=== PATIENT | female | born 1965 | race African-American/Black ===

== ENCOUNTER 2018-03-31 04:33 | Emergency (ER) | payer SELFPAY ==
[2018-03-31 04:42] VITALS: TEMP 97.6
--- NOTE | 2018-03-31 04:53 | C.PDOC ---
History Of Present Illness 52 y/o female presents to the Ed complaining of chest pain that began tonight. The patient states the pain radiated to the back and she occasionally has SOB. The patient denies any nausea or dyspnea. Time Seen by Provider: 03/31/18 04:42 Chief Complaint (Nursing): Chest Pain History Per: Patient History/Exam Limitations: no limitations Onset/Duration Of Symptoms: Hrs Current Symptoms Are (Timing): Still Present Quality: "Pain" Associated Symptoms: denies: Nausea, Dyspnea Recent travel outside of the [place]: No Past Medical History Reviewed: Historical Data, Nursing Documentation, Vital Signs Vital Signs: Last Vital Signs Temp 97.6 F 03/31/18 04:38 Pulse 82 03/31/18 04:38 Resp 25 H 03/31/18 04:38 BP 146/80 03/31/18 04:38 Pulse Ox 100 03/31/18 04:38 - Medical History PMH: HTN, Hypercholesterolemia Surgical History: Family History: States: Unknown Family Hx - Social History Hx Alcohol Use: No Hx Substance Use: No - Immunization History Hx Tetanus Toxoid Vaccination: No Hx Influenza Vaccination: No Hx Pneumococcal Vaccination: No Review Of Systems Except As Marked, All Systems Reviewed And Found Negative. Constitutional: Negative for: Fever Cardiovascular: Positive for: Chest Pain Respiratory: Positive for: Shortness of Breath Musculoskeletal: Positive for: Back Pain Physical Exam - Physical Exam Appears: Non-toxic, No Acute Distress Skin: Normal Color, Warm, Dry Head: Atraumatic, Normacephalic Eye(s): bilateral: PERRL, EOMI Ear(s): Bilateral: Normal Oral Mucosa: Moist Neck: Supple Chest: Tenderness (pain reproducible with palpations) Cardiovascular: Rhythm Regular, No Murmur Respiratory: Normal Breath Sounds, No Rales, No Rhonchi, No Wheezing Gastrointestinal/Abdominal: Soft, No Tenderness, No Distention Extremity: Normal ROM Extremity: Bilateral: Normal Color And Temperature, Normal ROM Neurological/Psych: Oriented x3, Normal Speech ED Course And Treatment - Laboratory Results Result Diagrams: 03/31/18 05:00 03/31/18 05:00 ECG: Interpreted By Me, Viewed By Me ECG Rhythm: Sinus Rhythm ECG Interpretation: Normal, No Acute Changes Interpretation Of ECG: NSR, no acute changes, normal tracings Rate From EC O2 Sat by Pulse Oximetry: 100 (RA) Pulse Ox Interpretation: Normal - Radiology CXR: Interpreted by Me CXR Interpretation: Yes: No Acute Disease. No: Infiltrates, COPD, Fracture, Cardiomegaly (normal chest film) Medical Decision Making Medical Decision Making: Impression: 52 y/o female with chest pain radiating to back and occasional SOB Plan: -EKG -CMP -Troponin I -CBC -D-DImer -PTT -PT -Chest X-Ray -Toradol 30mg IV 0532- on reeval patient is resting comfortable with improvement of symptoms. Patient is ready and stable for d/c Disposition Counseled Patient/Family Regarding: Diagnosis - Disposition Referrals: Vern Zaragoza MD [Staff Provider] - Disposition: HOME/ ROUTINE Disposition Time: 05:35 Condition: IMPROVED Prescriptions: RX: Naproxen 375 mg PO Q6 #14 tablet Instructions: Costochondritis Forms: [facility] ([place]) - POA Present On Arrival: None - Clinical Impression Clinical Impression: Chest wall pain - PA / [employer] / Resident Statement MD/DO has reviewed & agrees with the documentation as recorded. - Scribe Statement The provider has reviewed the documentation as recorded by the Scribe (Tabitha Garner) Provider Attestation: All medical record entries made by the Scribe were at my direction and personally dictated by me. I have reviewed the chart and agree that the record accurately reflects my personal performance of the history, physical exam, medical decision making, and the department course for this patient. I have also personally directed, reviewed, and agree with the discharge instructions and disposition.
[2018-03-31 05:03] LABS: BASO # 0.1 K/uL (0.0-0.2); BASO % 1.1 % (0.0-2.0); EOS # 0.1 K/uL (0.0-0.7); EOS % 1.1 % (0.0-4.0); HEMOGLOBIN 11.6 g/dL (11.0-16.0); LYMPH # 2.6 K/uL (1.0-4.3); LYMPH % 39.2 % (20.0-40.0); MEAN CELL VOLUME 78.1 fL (81.0-99.0); MEAN CORPUSCULAR HEMOGLOBIN 27.3 pg (27.0-31.0); MEAN CORPUSCULAR HGB CONC 34.9 g/dL (33.0-37.0); MEAN PLATELET VOLUME 9.1 fL (7.2-11.7); MONO # 0.4 K/uL (0.0-0.8); MONO % 6.6 % (0.0-10.0); NEUT # 3.4 K/uL (1.8-7.0); NRBC % 0.1 % (0.0-2.0); RBC 4.24 Mil/uL (3.80-5.20); RED CELL DISTRIBUTION WIDTH 12.8 % (11.5-14.5); WHITE BLOOD COUNT 6.6 K/uL (4.8-10.8)
[2018-03-31 05:10] LABS: PARTIAL THROMBOPLASTIN TIME 30 SECONDS (21-34)
[2018-03-31 05:13] LABS: ALB/GLOB RATIO 1.5 (1.0-2.1); ALBUMIN 4.2 g/dL (3.5-5.0); ALT/SGPT 27 U/L (9-52); AST/SGOT 23 U/L (14-36); BLOOD UREA NITROGEN 14 mg/dL (7-17); CALCIUM 9.4 mg/dl (8.6-10.4); GFR NON-AFRICAN AMERICAN > 60
[2018-03-31 05:25] LABS: D DIMER < 200 ng/mlDDU (0-243)
[2018-03-31 05:48] VITALS: BP 133/74; PULSE 80; RESP 14
[2018-03-31 05:50] VITALS: O2SAT 100
--- NOTE | 2018-03-31 11:57 | RAD ---
HISTORY: chest pain COMPARISON: None available TECHNIQUE: Chest PA and lateral FINDINGS: LUNGS: Hyperinflation may be seen in the setting of COPD. Biapical pleural thickening. Increased lucencies especially within the bilateral upper lung sandoval compatible with underlying emphysema. Mild subsegmental bibasilar atelectasis. No focal consolidation identified. Please note that chest x-ray has limited sensitivity for the detection of pulmonary masses. PLEURA: No significant pleural effusion identified. No definite pneumothorax . CARDIOVASCULAR: Heart size appears within normal limits. OSSEOUS STRUCTURES: No acute osseous abnormality identified. VISUALIZED UPPER ABDOMEN: Unremarkable. OTHER FINDINGS: None. IMPRESSION: COPD/emphysema. Biapical pleural thickening. Mild subsegmental bibasilar atelectasis.
--- NOTE | 2018-03-31 20:40 | CARD ---
APPROVED REPORT Date of service: 03/31/2018 EKG Measurement Heart [id number] <Conclusion> Normal sinus rhythm Normal ECG
== END 2018-03-31 05:48 | disposition home or self-care (01) ==
LOC: C.ER 04:33
DX: R07.89 Other chest pain (principal)
CPT/HCPCS: 71046; 80053; 84484; 85025; 85378; 85610; 85730; 93005; 96374; 99284; J1885